=== PATIENT | male | born 1955 | race Caucasian/White ===

== ENCOUNTER 2021-06-14 19:04 | Inpatient (IN) | payer MEDICARE, MEDICAID ==
[~2021-06-14] VITALS: Ht 182.9 cm; Wt 97.1 kg
[2021-06-14] MEDS ORDERED: KETOROLAC TROMETHAMINE 30 MG/ML VIAL IM ONE (20:15)
[2021-06-14] MEDS ORDERED: CYCLOBENZAPRINE HCL 10 MG TABLET PO ONE (20:15)
[2021-06-14] MEDS ORDERED: HYDROCODONE/ACETAMINOPHEN 5-325 MG TABLET PO ONE (20:15)
[2021-06-14] MEDS ORDERED: LIDOCAINE 5% TRANSDERMAL PATCH TD ONE (20:15)
[2021-06-14 22:46] LABS: BASOPHILS % (AUTO) 0.7 % (0.0-2.0); EOSINOPHILS % (AUTO) 8.4 % (1.0-6.0); HEMATOCRIT 40.3 % (41-53); HEMOGLOBIN 13.6 g/dL (13.5-17.5); LYMPHOCYTES # (AUTO) 1.7 K/uL (1.0-4.8); LYMPHOCYTES % (AUTO) 27.3 % (22.0-44.0); MEAN CORPUSCULAR HEMOGLOBIN 29.2 pg (26.0-34.0); MEAN CORPUSCULAR HGB CONC 33.7 G/dL (31.0-37.0); MEAN CORPUSCULAR VOLUME 87 fL (80-100); MONOCYTES # (AUTO) 0.6 K/uL (0.1-1.0); MONOCYTES % (AUTO) 9.6 % (2.0-9.0); NEUTROPHILS # (AUTO) 3.4 K/uL (1.8-7.7); PLATELET COUNT (AUTO) 265 K/uL (150-450); RED BLOOD CELL COUNT(AUTO) 4.65 MIL/uL (4.50-5.90); RED CELL DISTRIBUTION WIDTH 13.7 % (11.5-14.5)
[2021-06-14 22:52] LABS: ANION GAP 9 mmol/L (8-16); CALCIUM, TOTAL 9.3 mg/dL (8.8-10.5); CARBON DIOXIDE 26 mmol/L (22-29); CHLORIDE 109 mmol/L (98-107); CREATININE 1.08 mg/dL (0.60-1.30); GLOMERULAR FILTR. RATE CALC > 60 mL/min (>60); GLUCOSE,RANDOM 124 mg/dL (70-110); POTASSIUM 3.5 mmol/L (3.5-5.1); SODIUM SERUM 144 mmol/L (136-145); UREA NITROGEN, BLOOD 18 mg/dL (7-18)
[2021-06-14 22:58] LABS: ALANINE AMINOTRANSFERASE 23 U/L (12-78); ALKALINE PHOSPHATASE 57 U/L (46-116); ASPARTATE AMINOTRANSFERASE 21 U/L (15-37); BILIRUBIN,TOTAL 0.6 mg/dL (0.1-1.0)
[2021-06-14 23:34] LABS: COVID AG,FIA SOURCE NASOPHARYNGEAL
[2021-06-14 23:44] LABS: APPEARANCE,URINE CLOUDY (CLEAR); GLUCOSE, URINE (UA) NEGATIVE (NEGATIVE); KETONES,URINE 40 mg/dL (NEGATIVE); LEUKOCYTE ESTERASE ,URINE NEGATIVE (NEGATIVE); NITRATE,URINE NEGATIVE (NEGATIVE); OCCULT BLOOD,URINE NEGATIVE (NEGATIVE); PH,URINE 5.5 (5.0-8.0); PROTEIN,URINE POS 1+ (NEGATIVE)
[2021-06-14 23:48] LABS: BILIRUBIN,URINE PRELIM. POSITIVE (NEGATIVE)
[2021-06-14 23:49] LABS: AMPHET/METH SCREEN,URINE NEGATIVE (NEGATIVE); BARBITURATE SCREEN, URINE NEGATIVE (NEGATIVE); BENZODIAZEPINES SCREEN,URINE NEGATIVE (NEGATIVE); CANNABINOID SCREEN,URINE NEGATIVE (NEGATIVE); COCAINE SCREEN,URINE NEGATIVE (NEGATIVE); METHADONE SCREEN, URINE NEGATIVE (NEGATIVE); OPIATE SCREEN,URINE POSITIVE (NEGATIVE)
[2021-06-14 23:50] LABS: PHENCYCLIDINE SCREEN,URINE NEGATIVE (NEGATIVE)
[2021-06-15] MEDS: ZOLPIDEM TARTRATE 10 MG TABLET PO PRN ×2 (00:15→23:49)
[2021-06-15] MEDS: LORazepam 2 MG TABLET PO PRN ×2 (00:15→13:45)
[2021-06-15 00:30] LABS: CHOL/HDL RATIO 7.8 (4.2-7.3); CHOLESTEROL 187 mg/dL (131-200); HDL CHOLESTEROL 24 mg/dL (40-60); LDL CHOL (CALC.) 146 mg/dL (0-130); TRIGLYCERIDES 86 mg/dL (15-150)
[2021-06-15] MEDS ORDERED: ARIP15TA27 PO (07:02)
[2021-06-15] MEDS ORDERED: GABA-1181 PO (07:09)
[2021-06-15] MEDS ORDERED: DULO60CA98 PO (07:09)
[2021-06-15] MEDS ORDERED: GuaiFENesin/D-METHORPHAN [SUGAR-FREE] 200-20MG/10 ML SYRUP UDCUP PO PRN (07:15)
[2021-06-15] MEDS ORDERED: MAG HYDROX/AL HYDROX/SIMETH ES 30 ML SUSPENSION UDCUP PO PRN (07:15)
[2021-06-15] MEDS ORDERED: ACETAMINOPHEN 325 MG TABLET PO PRN (07:15)
[2021-06-15] MEDS ORDERED: ALBUTEROL SULFATE HFA 90 MCG/PUFF 8 GM INHALER IH PRN (07:15)
[2021-06-15] MEDS ORDERED: DOCUSATE SODIUM 100 MG CAPSULE PO PRN (07:15)
[2021-06-15] MEDS ORDERED: CloNIDine HCL 0.1 MG TABLET PO PRN (07:15)
[2021-06-15] MEDS ORDERED: ONDANSETRON HCL 4 MG TABLET PO PRN (07:15)
[2021-06-15] MEDS ORDERED: LOPERAMIDE HCL 2 MG CAPSULE PO PRN (07:15)
[2021-06-15] MEDS ORDERED: PETROLATUM,WHITE 28 GM JELLY TP PRN (07:15)
[2021-06-15] MEDS ORDERED: HYDROCODONE/ACETAMINOPHEN 5-325 MG TABLET PO ONE (08:00)
[2021-06-15] MEDS: IBUPROFEN 400 MG TABLET PO PRN ×2 (09:53→23:50)
[2021-06-15 09:55] VITALS: BP 125/88
[2021-06-15] MEDS ORDERED: PNEUMOCOCCAL VACCINE POLYVALENT 0.5 ML VIAL [PPSV23] IM. ONE (11:45)
[2021-06-15] MEDS: NICOTINE 14 MG/24 HOUR PATCH TD PRN (12:25)
[2021-06-15] MEDS: HALOPERIDOL 5 MG TABLET PO PRN (17:15)
[2021-06-15 17:16] VITALS: BP 140/85
[2021-06-15 20:39] VITALS: BP 123/56
[2021-06-15] MEDS: TraMADol HCL 50 MG TABLET PO PRN (20:39)
[2021-06-15 23:50] VITALS: BP 136/87
[2021-06-16] MEDS: LORazepam 2 MG TABLET PO PRN (05:53)
[2021-06-16 08:24] VITALS: BP 133/98
[2021-06-16] MEDS ORDERED: GABAPENTIN 400 MG CAPSULE PO SCH (09:00)
[2021-06-16] MEDS: CYCLOBENZAPRINE HCL 10 MG TABLET PO SCH (09:06)
[2021-06-16] MEDS: DULoxetine HCL 60 MG CAPSULE PO SCH ×2 (12:33→16:55)
[2021-06-16] MEDS: GABAPENTIN 300 MG CAPSULE PO SCH ×3 (12:33→20:22)
[2021-06-16] MEDS: NICOTINE 14 MG/24 HOUR PATCH TD PRN (13:44)
[2021-06-16 16:28] VITALS: BP 144/79
[2021-06-16] MEDS: TraMADol HCL 50 MG TABLET PO PRN (17:55)
[2021-06-16] MEDS: ARIPiprazole 15 MG TABLET PO SCH (20:21)
[2021-06-17] MEDS: ZOLPIDEM TARTRATE 10 MG TABLET PO PRN (00:10)
[2021-06-17 00:19] VITALS: BP 146/90
[2021-06-17] MEDS: LORazepam 2 MG TABLET PO PRN (02:49)
[2021-06-17 08:00] VITALS: BP 146/99
[2021-06-17] MEDS: CYCLOBENZAPRINE HCL 10 MG TABLET PO SCH (08:57)
[2021-06-17] MEDS: GABAPENTIN 300 MG CAPSULE PO SCH ×4 (08:57→21:03)
[2021-06-17] MEDS: NICOTINE 21 MG/24 HOUR PATCH TD SCH (08:57)
[2021-06-17] MEDS: DULoxetine HCL 60 MG CAPSULE PO SCH ×2 (08:57→16:58)
[2021-06-17 13:20] VITALS: BP 146/89
[2021-06-17] MEDS: TraMADol HCL 50 MG TABLET PO PRN ×2 (13:20→20:19)
[2021-06-17 16:00] VITALS: BP 135/87
[2021-06-17 20:19] VITALS: BP 140/70
[2021-06-17] MEDS: ARIPiprazole 15 MG TABLET PO SCH (21:03)
[2021-06-18 02:20] VITALS: BP 143/90
[2021-06-18] MEDS: ZOLPIDEM TARTRATE 10 MG TABLET PO PRN (02:35)
[2021-06-18] MEDS: TraMADol HCL 50 MG TABLET PO PRN ×2 (02:37→16:45)
[2021-06-18] MEDS: IBUPROFEN 400 MG TABLET PO PRN (05:22)
[2021-06-18] MEDS: LORazepam 2 MG TABLET PO PRN ×2 (05:22→19:21)
[2021-06-18 05:24] VITALS: BP 139/97
[2021-06-18 08:55] VITALS: BP 124/94
[2021-06-18] MEDS: GABAPENTIN 300 MG CAPSULE PO SCH ×4 (09:06→20:28)
[2021-06-18] MEDS: DULoxetine HCL 60 MG CAPSULE PO SCH ×2 (09:06→16:08)
[2021-06-18] MEDS: NICOTINE 21 MG/24 HOUR PATCH TD SCH (09:07)
[2021-06-18] MEDS: CYCLOBENZAPRINE HCL 10 MG TABLET PO SCH (09:07)
[2021-06-18 16:09] VITALS: BP 126/90
[2021-06-18 19:45] VITALS: BP 133/76
[2021-06-18] MEDS: ARIPiprazole 15 MG TABLET PO SCH (20:27)
[2021-06-19 02:00] VITALS: BP 158/94
[2021-06-19] MEDS: TraMADol HCL 50 MG TABLET PO PRN ×2 (02:01→19:09)
[2021-06-19] MEDS: ZOLPIDEM TARTRATE 10 MG TABLET PO PRN (02:03)
[2021-06-19 03:01] VITALS: BP 128/80
[2021-06-19 08:12] VITALS: BP 157/94
[2021-06-19] MEDS: CYCLOBENZAPRINE HCL 10 MG TABLET PO SCH (09:26)
[2021-06-19] MEDS: GABAPENTIN 300 MG CAPSULE PO SCH ×4 (09:26→20:36)
[2021-06-19] MEDS: DULoxetine HCL 60 MG CAPSULE PO SCH ×2 (09:26→16:29)
[2021-06-19] MEDS: NICOTINE 21 MG/24 HOUR PATCH TD SCH (09:27)
[2021-06-19] MEDS: LORazepam 2 MG TABLET PO PRN (09:28)
[2021-06-19 13:09] LABS: COVID AG,FIA SOURCE NASOPHARYNGEAL
[2021-06-19 16:00] VITALS: BP 117/79
[2021-06-19 19:09] VITALS: BP 120/70
[2021-06-19] MEDS: ARIPiprazole 15 MG TABLET PO SCH (20:36)
[2021-06-20 00:35] VITALS: BP 148/80
[2021-06-20] MEDS: IBUPROFEN 400 MG TABLET PO PRN ×2 (00:44→23:54)
[2021-06-20] MEDS: LORazepam 2 MG TABLET PO PRN ×3 (00:44→19:07)
[2021-06-20 01:44] VITALS: BP 134/77
[2021-06-20 08:10] VITALS: BP 138/91
[2021-06-20] MEDS: GABAPENTIN 300 MG CAPSULE PO SCH ×4 (08:14→20:58)
[2021-06-20] MEDS: NICOTINE 21 MG/24 HOUR PATCH TD SCH (08:14)
[2021-06-20] MEDS: DULoxetine HCL 60 MG CAPSULE PO SCH ×2 (08:14→17:02)
[2021-06-20] MEDS: CYCLOBENZAPRINE HCL 10 MG TABLET PO SCH (08:14)
[2021-06-20 16:06] VITALS: BP 135/90
[2021-06-20 20:22] VITALS: BP 127/84
[2021-06-20] MEDS: TraMADol HCL 50 MG TABLET PO PRN (20:22)
[2021-06-20] MEDS: ARIPiprazole 15 MG TABLET PO SCH (20:58)
[2021-06-20 23:45] VITALS: BP 145/80
[2021-06-20] MEDS: ZOLPIDEM TARTRATE 10 MG TABLET PO PRN (23:54)
[2021-06-21 07:58] VITALS: BP 105/18
[2021-06-21] MEDS: DULoxetine HCL 60 MG CAPSULE PO SCH ×2 (08:57→16:01)
[2021-06-21] MEDS: CYCLOBENZAPRINE HCL 10 MG TABLET PO SCH (08:57)
[2021-06-21] MEDS: GABAPENTIN 300 MG CAPSULE PO SCH ×4 (08:57→20:15)
[2021-06-21 09:05] VITALS: BP 122/89
[2021-06-21] MEDS: LORazepam 2 MG TABLET PO PRN ×2 (09:15→19:18)
[2021-06-21] MEDS: NICOTINE 21 MG/24 HOUR PATCH TD SCH (09:16)
[2021-06-21] MEDS: TraMADol HCL 50 MG TABLET PO PRN ×2 (12:00→21:46)
[2021-06-21 16:47] VITALS: BP 121/70
[2021-06-21] MEDS: ARIPiprazole 15 MG TABLET PO SCH (20:15)
[2021-06-21 21:46] VITALS: BP 127/85
[2021-06-21 22:46] VITALS: BP 123/82
[2021-06-21 23:50] VITALS: BP 134/80
[2021-06-22] MEDS: ZOLPIDEM TARTRATE 10 MG TABLET PO PRN (00:03)
[2021-06-22 08:00] VITALS: BP 123/75
[2021-06-22] MEDS: NICOTINE 21 MG/24 HOUR PATCH TD SCH (09:11)
[2021-06-22] MEDS: DULoxetine HCL 60 MG CAPSULE PO SCH ×2 (09:12→16:27)
[2021-06-22] MEDS: CYCLOBENZAPRINE HCL 10 MG TABLET PO SCH (09:12)
[2021-06-22] MEDS: GABAPENTIN 300 MG CAPSULE PO SCH ×4 (09:12→20:19)
[2021-06-22] MEDS: LORazepam 2 MG TABLET PO PRN ×2 (10:14→22:04)
[2021-06-22 16:15] VITALS: BP 98/55
[2021-06-22] MEDS: ARIPiprazole 15 MG TABLET PO SCH (20:19)
[2021-06-23 04:05] VITALS: BP 138/96
[2021-06-23] MEDS: TraMADol HCL 50 MG TABLET PO PRN ×3 (04:08→20:18)
[2021-06-23] MEDS: LORazepam 2 MG TABLET PO PRN ×2 (04:08→14:50)
[2021-06-23] MEDS: CYCLOBENZAPRINE HCL 10 MG TABLET PO SCH (08:54)
[2021-06-23] MEDS: DULoxetine HCL 60 MG CAPSULE PO SCH ×2 (08:54→16:44)
[2021-06-23] MEDS: GABAPENTIN 300 MG CAPSULE PO SCH ×4 (08:56→20:16)
[2021-06-23] MEDS: NICOTINE 21 MG/24 HOUR PATCH TD SCH (08:56)
[2021-06-23 10:25] VITALS: BP 123/83
[2021-06-23 16:48] VITALS: BP 130/68
[2021-06-23] MEDS: ARIPiprazole 15 MG TABLET PO SCH (20:16)
[2021-06-24 01:38] VITALS: BP 140/93
[2021-06-24 04:23] VITALS: BP 140/96
[2021-06-24] MEDS: TraMADol HCL 50 MG TABLET PO PRN ×2 (04:23→12:33)
[2021-06-24] MEDS: LORazepam 2 MG TABLET PO PRN ×2 (04:23→18:53)
[2021-06-24 08:20] VITALS: BP 135/87
[2021-06-24] MEDS: CYCLOBENZAPRINE HCL 10 MG TABLET PO SCH (09:07)
[2021-06-24] MEDS: DULoxetine HCL 60 MG CAPSULE PO SCH ×2 (09:08→16:30)
[2021-06-24] MEDS: GABAPENTIN 300 MG CAPSULE PO SCH ×4 (09:08→21:02)
[2021-06-24] MEDS: NICOTINE 21 MG/24 HOUR PATCH TD SCH (09:08)
[2021-06-24 12:33] VITALS: BP 139/87
[2021-06-24 16:02] VITALS: BP 137/76
[2021-06-24] MEDS: ARIPiprazole 15 MG TABLET PO SCH (21:03)
[2021-06-25] MEDS: CYCLOBENZAPRINE HCL 10 MG TABLET PO SCH (07:43)
[2021-06-25] MEDS: NICOTINE 21 MG/24 HOUR PATCH TD SCH (07:43)
[2021-06-25] MEDS: DULoxetine HCL 60 MG CAPSULE PO SCH ×2 (07:43→16:10)
[2021-06-25] MEDS: GABAPENTIN 300 MG CAPSULE PO SCH ×4 (07:43→20:30)
[2021-06-25 07:44] VITALS: BP 137/98
[2021-06-25] MEDS: TraMADol HCL 50 MG TABLET PO PRN (07:44)
[2021-06-25 08:00] VITALS: BP 137/98
[2021-06-25] MEDS: LORazepam 2 MG TABLET PO PRN ×2 (08:42→17:40)
[2021-06-25 16:13] VITALS: BP 114/55
[2021-06-25] MEDS: ARIPiprazole 15 MG TABLET PO SCH (20:30)
[2021-06-26 01:28] VITALS: BP_SYST 125; BP_DIAS 6; BP_DIAS 68
[2021-06-26] MEDS: ZOLPIDEM TARTRATE 10 MG TABLET PO PRN (01:28)
[2021-06-26] MEDS: TraMADol HCL 50 MG TABLET PO PRN ×2 (01:29→19:34)
[2021-06-26] MEDS: LORazepam 2 MG TABLET PO PRN ×2 (05:05→22:15)
[2021-06-26 08:35] VITALS: BP 116/68
[2021-06-26] MEDS: CYCLOBENZAPRINE HCL 10 MG TABLET PO SCH (08:55)
[2021-06-26] MEDS: GABAPENTIN 300 MG CAPSULE PO SCH ×4 (08:55→20:14)
[2021-06-26] MEDS: DULoxetine HCL 60 MG CAPSULE PO SCH ×2 (08:55→16:34)
[2021-06-26] MEDS: NICOTINE 21 MG/24 HOUR PATCH TD SCH (08:55)
[2021-06-26 16:16] VITALS: BP 105/60
[2021-06-26 19:34] VITALS: BP 120/65
[2021-06-26] MEDS: ARIPiprazole 15 MG TABLET PO SCH (20:13)
[2021-06-26] MEDS: MAGNESIUM HYDROXIDE SUSPENSION 30 ML UDCUP PO PRN (20:14)
[2021-06-26 20:34] VITALS: BP 115/64
[2021-06-27 02:25] VITALS: BP 140/80
[2021-06-27] MEDS: ZOLPIDEM TARTRATE 10 MG TABLET PO PRN (02:34)
[2021-06-27 06:53] LABS: COVID AG,FIA SOURCE NASOPHARYNGEAL
[2021-06-27] MEDS: GABAPENTIN 300 MG CAPSULE PO SCH ×4 (08:10→20:16)
[2021-06-27] MEDS: DULoxetine HCL 60 MG CAPSULE PO SCH ×2 (08:11→16:18)
[2021-06-27] MEDS: NICOTINE 21 MG/24 HOUR PATCH TD SCH (08:11)
[2021-06-27] MEDS: CYCLOBENZAPRINE HCL 10 MG TABLET PO SCH (08:11)
[2021-06-27] MEDS: TraMADol HCL 50 MG TABLET PO PRN ×2 (08:13→22:26)
[2021-06-27 08:31] VITALS: BP 119/75
[2021-06-27] MEDS: MAGNESIUM HYDROXIDE SUSPENSION 30 ML UDCUP PO PRN (11:25)
[2021-06-27 16:13] VITALS: BP 110/62
[2021-06-27] MEDS: LORazepam 2 MG TABLET PO PRN (17:04)
[2021-06-27] MEDS: ARIPiprazole 15 MG TABLET PO SCH (20:16)
[2021-06-28] VITALS (7 sets, daily range): BP systolic 107–143; BP diastolic 62–93
[2021-06-28] MEDS: ZOLPIDEM TARTRATE 10 MG TABLET PO PRN (02:38)
[2021-06-28] MEDS: LORazepam 2 MG TABLET PO PRN ×3 (02:38→23:44)
[2021-06-28] MEDS: DULoxetine HCL 60 MG CAPSULE PO SCH ×2 (09:22→16:12)
[2021-06-28] MEDS: CYCLOBENZAPRINE HCL 10 MG TABLET PO SCH (09:22)
[2021-06-28] MEDS: GABAPENTIN 300 MG CAPSULE PO SCH ×4 (09:23→20:07)
[2021-06-28] MEDS: NICOTINE 21 MG/24 HOUR PATCH TD SCH (09:24)
[2021-06-28] MEDS: TraMADol HCL 50 MG TABLET PO PRN ×2 (09:55→19:31)
[2021-06-28] MEDS: ARIPiprazole 15 MG TABLET PO SCH (20:07)
[2021-06-28] MEDS: IBUPROFEN 400 MG TABLET PO PRN (23:46)
[2021-06-29] MEDS: CYCLOBENZAPRINE HCL 10 MG TABLET PO SCH (09:55)
[2021-06-29] MEDS: GABAPENTIN 300 MG CAPSULE PO SCH ×4 (09:55→20:15)
[2021-06-29] MEDS: DULoxetine HCL 60 MG CAPSULE PO SCH ×2 (09:55→16:10)
[2021-06-29] MEDS: NICOTINE 21 MG/24 HOUR PATCH TD SCH (09:56)
[2021-06-29] MEDS: LORazepam 2 MG TABLET PO PRN ×2 (11:20→19:11)
[2021-06-29 11:47] VITALS: BP 146/89
[2021-06-29 13:00] VITALS: BP 146/90
[2021-06-29 16:30] VITALS: BP 112/72
[2021-06-29] MEDS: TraMADol HCL 50 MG TABLET PO PRN (19:14)
[2021-06-29] MEDS: ARIPiprazole 15 MG TABLET PO SCH (20:15)
[2021-06-30 05:10] VITALS: BP 154/91
[2021-06-30] MEDS: TraMADol HCL 50 MG TABLET PO PRN ×2 (05:20→11:22)
[2021-06-30] MEDS: DULoxetine HCL 60 MG CAPSULE PO SCH ×2 (08:40→17:56)
[2021-06-30] MEDS: GABAPENTIN 300 MG CAPSULE PO SCH ×4 (08:40→20:53)
[2021-06-30] MEDS: CYCLOBENZAPRINE HCL 10 MG TABLET PO SCH (08:40)
[2021-06-30] MEDS: NICOTINE 21 MG/24 HOUR PATCH TD SCH (08:41)
[2021-06-30] MEDS: LORazepam 2 MG TABLET PO PRN ×2 (08:50→19:47)
[2021-06-30 10:01] VITALS: BP 146/81
[2021-06-30 11:22] VITALS: BP 149/86
[2021-06-30 16:00] VITALS: BP 142/84
[2021-06-30] MEDS: HALOPERIDOL 5 MG TABLET PO PRN (17:56)
[2021-06-30] MEDS: ARIPiprazole 15 MG TABLET PO SCH (20:53)
[2021-06-30] MEDS: ZOLPIDEM TARTRATE 10 MG TABLET PO PRN (20:54)
[2021-07-01] MEDS: NICOTINE 21 MG/24 HOUR PATCH TD SCH (08:11)
[2021-07-01] MEDS: CYCLOBENZAPRINE HCL 10 MG TABLET PO SCH (08:12)
[2021-07-01] MEDS: DULoxetine HCL 60 MG CAPSULE PO SCH ×2 (08:12→16:49)
[2021-07-01] MEDS: GABAPENTIN 300 MG CAPSULE PO SCH ×4 (08:12→20:16)
[2021-07-01 09:00] VITALS: BP 123/67
[2021-07-01] MEDS: MAGNESIUM HYDROXIDE SUSPENSION 30 ML UDCUP PO PRN (09:45)
[2021-07-01] MEDS: LORazepam 2 MG TABLET PO PRN ×2 (10:12→21:07)
[2021-07-01 13:02] VITALS: BP 136/74
[2021-07-01] MEDS: TraMADol HCL 50 MG TABLET PO PRN ×2 (13:02→19:21)
[2021-07-01 16:27] VITALS: BP 101/57
[2021-07-01 19:21] VITALS: BP 136/72
[2021-07-01] MEDS: ARIPiprazole 15 MG TABLET PO SCH (20:16)
[2021-07-01 20:21] VITALS: BP 127/72
[2021-07-02 06:37] VITALS: BP 144/94
[2021-07-02 08:10] VITALS: BP 122/70
[2021-07-02] MEDS: NICOTINE 21 MG/24 HOUR PATCH TD SCH (08:16)
[2021-07-02] MEDS: GABAPENTIN 300 MG CAPSULE PO SCH ×4 (08:16→21:01)
[2021-07-02] MEDS: DULoxetine HCL 60 MG CAPSULE PO SCH ×2 (08:16→16:34)
[2021-07-02] MEDS: CYCLOBENZAPRINE HCL 10 MG TABLET PO SCH (08:16)
[2021-07-02] MEDS: LORazepam 2 MG TABLET PO PRN (08:17)
[2021-07-02 10:25] VITALS: BP 104/63
[2021-07-02 15:41] VITALS: BP 128/78
[2021-07-02] MEDS: TraMADol HCL 50 MG TABLET PO PRN (15:41)
[2021-07-02 16:39] VITALS: BP 128/78
[2021-07-02] MEDS: ARIPiprazole 15 MG TABLET PO SCH (21:01)
[2021-07-03 02:36] VITALS: BP 136/82
[2021-07-03 04:21] VITALS: BP 139/96
[2021-07-03] MEDS: LORazepam 2 MG TABLET PO PRN ×2 (04:21→12:47)
[2021-07-03] MEDS: GABAPENTIN 300 MG CAPSULE PO SCH ×4 (08:13→20:14)
[2021-07-03] MEDS: CYCLOBENZAPRINE HCL 10 MG TABLET PO SCH (08:13)
[2021-07-03] MEDS: DULoxetine HCL 60 MG CAPSULE PO SCH ×2 (08:13→16:20)
[2021-07-03] MEDS: NICOTINE 21 MG/24 HOUR PATCH TD SCH (08:13)
[2021-07-03 08:30] VITALS: BP 123/82
[2021-07-03 12:47] VITALS: BP 111/72
[2021-07-03] MEDS: TraMADol HCL 50 MG TABLET PO PRN (12:47)
[2021-07-03 16:01] VITALS: BP 107/58
[2021-07-03] MEDS: MAGNESIUM HYDROXIDE SUSPENSION 30 ML UDCUP PO PRN (18:47)
[2021-07-03] MEDS: ARIPiprazole 15 MG TABLET PO SCH (20:14)
[2021-07-04 06:20] VITALS: BP 127/69
[2021-07-04] MEDS: LORazepam 2 MG TABLET PO PRN (06:23)
[2021-07-04] MEDS: TraMADol HCL 50 MG TABLET PO PRN ×2 (06:24→21:11)
[2021-07-04] MEDS: GABAPENTIN 300 MG CAPSULE PO SCH ×4 (08:58→21:11)
[2021-07-04] MEDS: CYCLOBENZAPRINE HCL 10 MG TABLET PO SCH (08:59)
[2021-07-04] MEDS: DULoxetine HCL 60 MG CAPSULE PO SCH ×2 (08:59→16:37)
[2021-07-04] MEDS: NICOTINE 21 MG/24 HOUR PATCH TD SCH (09:00)
[2021-07-04 09:35] VITALS: BP 128/78
[2021-07-04 16:00] VITALS: BP 134/74
[2021-07-04 16:06] LABS: COVID AG,FIA SOURCE NASOPHARYNGEAL
[2021-07-04] MEDS: MAGNESIUM HYDROXIDE SUSPENSION 30 ML UDCUP PO PRN (16:11)
[2021-07-04] MEDS: ARIPiprazole 15 MG TABLET PO SCH (21:10)
[2021-07-04 21:11] VITALS: BP 139/89
[2021-07-04] MEDS: ZOLPIDEM TARTRATE 10 MG TABLET PO PRN (22:19)
[2021-07-05 00:40] VITALS: BP 138/73
[2021-07-05] MEDS: LORazepam 2 MG TABLET PO PRN ×3 (00:47→20:00)
[2021-07-05] MEDS: IBUPROFEN 400 MG TABLET PO PRN (00:47)
[2021-07-05 08:28] VITALS: BP 148/99
[2021-07-05] MEDS: TraMADol HCL 50 MG TABLET PO PRN (08:28)
[2021-07-05] MEDS: NICOTINE 21 MG/24 HOUR PATCH TD SCH (08:29)
[2021-07-05] MEDS: DULoxetine HCL 60 MG CAPSULE PO SCH ×2 (08:29→17:38)
[2021-07-05] MEDS: CYCLOBENZAPRINE HCL 10 MG TABLET PO SCH (08:29)
[2021-07-05] MEDS: GABAPENTIN 300 MG CAPSULE PO SCH ×4 (08:29→21:00)
[2021-07-05 09:00] VITALS: BP 148/99
[2021-07-05 16:04] VITALS: BP 119/80
[2021-07-05] MEDS: HALOPERIDOL 5 MG TABLET PO PRN (17:38)
[2021-07-05] MEDS: ARIPiprazole 15 MG TABLET PO SCH (21:00)
[2021-07-05] MEDS: ZOLPIDEM TARTRATE 10 MG TABLET PO PRN (21:00)
[2021-07-06 03:56] VITALS: BP 139/92
[2021-07-06] MEDS: LORazepam 2 MG TABLET PO PRN ×2 (03:57→12:14)
[2021-07-06] MEDS: IBUPROFEN 400 MG TABLET PO PRN (03:57)
[2021-07-06] MEDS: CYCLOBENZAPRINE HCL 10 MG TABLET PO SCH (08:54)
[2021-07-06] MEDS: DULoxetine HCL 60 MG CAPSULE PO SCH ×2 (08:55→16:30)
[2021-07-06] MEDS: GABAPENTIN 300 MG CAPSULE PO SCH ×4 (08:55→20:45)
[2021-07-06] MEDS: NICOTINE 21 MG/24 HOUR PATCH TD SCH (08:55)
[2021-07-06 09:01] VITALS: BP 119/76
[2021-07-06] MEDS: MAGNESIUM HYDROXIDE SUSPENSION 30 ML UDCUP PO PRN (09:01)
[2021-07-06] MEDS: TraMADol HCL 50 MG TABLET PO PRN (09:01)
[2021-07-06 10:17] VITALS: BP 119/76
[2021-07-06] MEDS: HALOPERIDOL 5 MG TABLET PO PRN (16:30)
[2021-07-06 16:47] VITALS: BP 112/61
[2021-07-06] MEDS: ARIPiprazole 15 MG TABLET PO SCH (20:45)
[2021-07-06] MEDS: ZOLPIDEM TARTRATE 10 MG TABLET PO PRN (21:19)
[2021-07-07] MEDS: IBUPROFEN 400 MG TABLET PO PRN (02:49)
[2021-07-07] MEDS: LORazepam 2 MG TABLET PO PRN ×3 (02:49→20:33)
[2021-07-07 02:51] VITALS: BP 139/90
[2021-07-07 08:10] VITALS: BP 119/82
[2021-07-07] MEDS: CYCLOBENZAPRINE HCL 10 MG TABLET PO SCH (09:20)
[2021-07-07] MEDS: DULoxetine HCL 60 MG CAPSULE PO SCH ×2 (09:20→16:13)
[2021-07-07] MEDS: NICOTINE 21 MG/24 HOUR PATCH TD SCH (09:20)
[2021-07-07] MEDS: GABAPENTIN 300 MG CAPSULE PO SCH ×4 (09:20→20:33)
[2021-07-07] MEDS: MAGNESIUM HYDROXIDE SUSPENSION 30 ML UDCUP PO PRN (16:21)
[2021-07-07 16:25] VITALS: BP 110/50
[2021-07-07] MEDS: ARIPiprazole 15 MG TABLET PO SCH (20:33)
[2021-07-07] MEDS: TraMADol HCL 50 MG TABLET PO PRN (22:05)
[2021-07-07] MEDS: HALOPERIDOL 5 MG TABLET PO PRN (22:05)
[2021-07-08] MEDS: DULoxetine HCL 60 MG CAPSULE PO SCH ×2 (08:06→17:08)
[2021-07-08] MEDS: CYCLOBENZAPRINE HCL 10 MG TABLET PO SCH (08:07)
[2021-07-08] MEDS: GABAPENTIN 300 MG CAPSULE PO SCH ×4 (08:07→20:32)
[2021-07-08] MEDS: NICOTINE 21 MG/24 HOUR PATCH TD SCH (08:08)
[2021-07-08] MEDS: LORazepam 2 MG TABLET PO PRN ×2 (08:50→18:48)
[2021-07-08 08:54] VITALS: BP 133/88
[2021-07-08 11:50] VITALS: BP 133/88
[2021-07-08] MEDS: TraMADol HCL 50 MG TABLET PO PRN (11:53)
[2021-07-08 16:04] VITALS: BP 140/96
[2021-07-08] MEDS: ARIPiprazole 15 MG TABLET PO SCH (20:32)
[2021-07-09] MEDS: NICOTINE 21 MG/24 HOUR PATCH TD SCH (08:16)
[2021-07-09] MEDS: GABAPENTIN 300 MG CAPSULE PO SCH ×4 (08:16→20:02)
[2021-07-09] MEDS: CYCLOBENZAPRINE HCL 10 MG TABLET PO SCH (08:16)
[2021-07-09] MEDS: DULoxetine HCL 60 MG CAPSULE PO SCH ×2 (08:17→16:18)
[2021-07-09 08:49] VITALS: BP 138/75
[2021-07-09 09:50] VITALS: BP 138/75
[2021-07-09] MEDS: LORazepam 2 MG TABLET PO PRN ×2 (09:55→19:04)
[2021-07-09] MEDS: TraMADol HCL 50 MG TABLET PO PRN (09:55)
[2021-07-09 16:00] VITALS: BP 125/65
[2021-07-09] MEDS: ARIPiprazole 15 MG TABLET PO SCH (20:02)
[2021-07-09 20:35] VITALS: BP 127/70
[2021-07-09] MEDS: IBUPROFEN 400 MG TABLET PO PRN (20:35)
[2021-07-09 21:35] VITALS: BP 130/72
[2021-07-10 03:16] VITALS: BP 125/80
[2021-07-10] MEDS: NICOTINE 21 MG/24 HOUR PATCH TD SCH (08:25)
[2021-07-10] MEDS: DULoxetine HCL 60 MG CAPSULE PO SCH ×2 (08:25→16:15)
[2021-07-10] MEDS: GABAPENTIN 300 MG CAPSULE PO SCH ×4 (08:25→21:14)
[2021-07-10] MEDS: CYCLOBENZAPRINE HCL 10 MG TABLET PO SCH (08:26)
[2021-07-10] MEDS: LORazepam 2 MG TABLET PO PRN ×2 (08:26→16:27)
[2021-07-10 08:50] VITALS: BP 126/86
[2021-07-10] MEDS: MAGNESIUM HYDROXIDE SUSPENSION 30 ML UDCUP PO PRN (13:18)
[2021-07-10 16:21] VITALS: BP 114/78
[2021-07-10] MEDS: ARIPiprazole 15 MG TABLET PO SCH (21:14)
[2021-07-11 03:45] VITALS: BP 122/79
[2021-07-11] MEDS: TraMADol HCL 50 MG TABLET PO PRN (03:45)
[2021-07-11] MEDS: LORazepam 2 MG TABLET PO PRN ×2 (03:49→18:18)
[2021-07-11 08:12] VITALS: BP 148/79
[2021-07-11] MEDS: GABAPENTIN 300 MG CAPSULE PO SCH ×4 (08:16→20:37)
[2021-07-11] MEDS: CYCLOBENZAPRINE HCL 10 MG TABLET PO SCH (08:17)
[2021-07-11] MEDS: DULoxetine HCL 60 MG CAPSULE PO SCH ×2 (08:17→17:00)
[2021-07-11] MEDS: NICOTINE 21 MG/24 HOUR PATCH TD SCH (08:18)
[2021-07-11] MEDS ORDERED: INFLUENZA VIRUS VACCINE QVS 2021-22 (6MO+)/PF 60 MCG/0.5 ML SYRINGE IM. ONE (08:45)
[2021-07-11 16:00] VITALS: BP 123/87
[2021-07-11] MEDS: HALOPERIDOL 5 MG TABLET PO PRN (17:00)
[2021-07-11 19:05] LABS: COVID AG,FIA SOURCE NASAL SWAB
[2021-07-11] MEDS: ZOLPIDEM TARTRATE 10 MG TABLET PO PRN (20:36)
[2021-07-11] MEDS: ARIPiprazole 15 MG TABLET PO SCH (20:37)
[2021-07-12 05:20] VITALS: BP 159/84
[2021-07-12] MEDS: LORazepam 2 MG TABLET PO PRN (05:23)
[2021-07-12] MEDS: TraMADol HCL 50 MG TABLET PO PRN (05:23)
[2021-07-12 08:15] VITALS: BP 144/88
[2021-07-12] MEDS: NICOTINE 21 MG/24 HOUR PATCH TD SCH (08:53)
[2021-07-12] MEDS: CYCLOBENZAPRINE HCL 10 MG TABLET PO SCH (08:53)
[2021-07-12] MEDS: DULoxetine HCL 60 MG CAPSULE PO SCH (08:53)
[2021-07-12] MEDS: GABAPENTIN 300 MG CAPSULE PO SCH (08:53)
[2021-07-12] MEDS: MAGNESIUM HYDROXIDE SUSPENSION 30 ML UDCUP PO PRN (09:26)
== END 2021-07-12 10:50 | disposition home or self-care (01) | DRG 751 ==
LOC: EMS 19:05 → 3EI 06-15 06:00
PROVIDERS: ADMIT Psychiatry & Neurology Child & Adolescent Psychiatry; ATTEND Psychiatry & Neurology Child & Adolescent Psychiatry
DX: F33.2 Major depressive disorder, recurrent severe without psychotic features (principal); E78.5 Hyperlipidemia, unspecified; Z59.00 Homelessness unspecified; Z20.822 Contact with and (suspected) exposure to COVID-19; F17.200 Nicotine dependence, unspecified, uncomplicated; F41.9 Anxiety disorder, unspecified; G89.29 Other chronic pain; K59.00 Constipation, unspecified; M54.16 Radiculopathy, lumbar region; F19.10 Other psychoactive substance abuse, uncomplicated; Z71.6 Tobacco abuse counseling
CPT/HCPCS: 80053; 80061; 81003; 83036; 85025; 90686; 90732; 99285; G0480; J1885

== ENCOUNTER 2021-07-16 14:24 | Emergency (ER) | payer MEDICARE, MEDICAID ==
[~2021-07-16] VITALS: Ht 180.3 cm; Wt 205.0 kg
[~2021-07-16 14:24] MED LIST: ARIP15TA27 PO; DULO60CA98 PO; GABA-1181 PO
[2021-07-16] MEDS ORDERED: KETOROLAC TROMETHAMINE 30 MG/ML VIAL IVP ONE (15:30)
[2021-07-16] MEDS ORDERED: ACETAMINOPHEN 500 MG TABLET PO ONE (15:30)
[2021-07-16] MEDS ORDERED: DIAZEPAM 5 MG/ML 2 ML SYRINGE IVP ONE (15:30)
[2021-07-16] MEDS ORDERED: HYDROCODONE/ACETAMINOPHEN 5-325 MG TABLET PO ONE (16:45)
[2021-07-16] MEDS ORDERED: NICOTINE 7 MG/24 HOUR PATCH TD ONE (17:15)
[2021-07-16 19:20] VITALS: BP 120/75
== END 2021-07-16 19:21 | disposition home or self-care (01) ==
LOC: EMS 15:18
DX: G89.29 Other chronic pain (principal); M54.50 Low back pain, unspecified; F32.9 Major depressive disorder, single episode, unspecified; F11.90 Opioid use, unspecified, uncomplicated; F17.290 Nicotine dependence, other tobacco product, uncomplicated; Z79.899 Other long term (current) drug therapy
CPT/HCPCS: 96374; 96375; 99284; J1885 ×2

== ENCOUNTER 2021-07-17 07:24 | Emergency (ER) | payer MEDICARE, MEDICAID ==
[~2021-07-17] VITALS: Ht 180.3 cm; Wt 93.2 kg
[2021-07-17 07:46] VITALS: BP 144/80
== END 2021-07-17 10:46 | disposition home or self-care (01) ==
LOC: EMS 07:24
DX: G89.29 Other chronic pain (principal); M54.50 Low back pain, unspecified; F31.9 Bipolar disorder, unspecified; I10 Essential (primary) hypertension; F17.210 Nicotine dependence, cigarettes, uncomplicated; Z79.899 Other long term (current) drug therapy
CPT/HCPCS: 99283; Z7502